=== PATIENT | male | born 1960 | race Caucasian/White ===

== ENCOUNTER → 2019-09-09 | Outpatient (CLI) | payer OTHER ==
--- NOTE | 2019-09-09 15:29 | XR ---
EXAMINATION TYPE: XR tibia fibula LT DATE OF EXAM: 09/09/2019 CLINICAL HISTORY: Numbness in left leg from injury. TECHNIQUE: Two views of the left leg are obtained. COMPARISON: None. FINDINGS: There is no acute fracture or dislocation seen in the left tibia or fibula. The left knee and ankle joints appear within normal limits. Some vascular calcification posterior distal leg level noted. IMPRESSION: There is no acute fracture or dislocation seen in the left tibia or fibula.
== END | disposition home or self-care (01) ==
LOC: RADXRMAIN 15:12
PROVIDERS: ATTEND Emergency Medicine
DX: S86.112A Strain of other muscle(s) and tendon(s) of posterior muscle group at lower leg level, left leg, initial encounter (principal)

== ENCOUNTER 2020-05-21 13:13 | Emergency (ER) | payer OTHER ==
[2020-05-21 13:54] VITALS: RESP 18
--- NOTE | 2020-05-21 14:37 | XR ---
EXAMINATION TYPE: XR ankle complete RT, XR foot complete RT DATE OF EXAM: 05/21/2020 CLINICAL HISTORY: Jumping injury with pain TECHNIQUE: Frontal, lateral and oblique images of the right ankle and foot are obtained. COMPARISON: None. FINDINGS: Their is acute comminuted slightly displaced fracture through the calcaneus, extension to s uperior posterior aspect is present, there is extension to the inferior aspect near the plantar fasci al insertion. There is extension to the subtalar joint. Bohler's angle fairly well maintained. Ankle mortise symmetry is preserved. Distal tibia and fibula intact. No additional acute fracture or dislocation in the right foot. Mild to moderate narrowing and spurrin g hindfoot and midfoot levels. Mild plantar surface subcutaneous edema. Impression: Acute comminuted minimally displaced calcaneal fracture as detailed above.
[2020-05-21] MEDS ORDERED: HYDROcodone/APAP 5-325MG 1 EACH TAB PO STA (14:49)
--- NOTE | 2020-05-21 15:57 | ED ---
General Adult HPI - General Chief complaint: Extremity Injury, Lower Stated complaint: Fall, R Ankle Injury Time Seen by Provider: 05/21/20 14:01 Source: patient, RN notes reviewed, old records reviewed Mode of arrival: wheelchair Limitations: physical limitation - History of Present Illness Initial comments: 59-year-old male patient presents to ED for evaluation of right foot pain. Patient reports that he was on a ladder moving some bricks from a chimney wound was then it attacked by a swarm of wasps. Patient produced a couple times. Patient states that he should've me down the ladder below his blood forceps up he jumped landing on his right calcaneus region. Patient is having localized pain in this area. Denies hitting his head or his neck. Denies any use of blood thinners. Denies any back pain. Systemic: Pt denies fatigue, fever/chills, rash. Pt denies weakness, night sweats, weight loss. Neuro: Pt denies headache, visual disturbances, syncope or pre-syncope. HEENT: Pt denies ocular discharge or irritation, otalgia, rhinorrhea, pharyngitis or notable lymphadenopathy. Cardiopulmonary: Pt denies chest pain, SOB, heart palpitations, dyspnea on exertion. Abdominal/GI: Pt denies abdominal pain, n/v/d. : Pt denies dysuria, burning w/ urination, frequency/urgency. Denies new onset urinary or bowel incontinence. Neuro: Pt denies new onset weakness, paresthesias. - Related Data Previous Rx's Medication Instructions Recorded Hydrocodone/Acetaminophen [[place] 1 each PO Q4HR PRN #20 tab 11/16/15 5-325] Levofloxacin [Levaquin] 750 mg PO DAILY #10 tab 11/16/15 metroNIDAZOLE [Flagyl] 500 mg PO QID 10 Days tab 11/16/15 Allergies Allergy/AdvReac Type Severity Reaction Status Date / Time No Known Allergies Allergy Verified 05/21/20 13:54 Review of Systems ROS Statement: Those systems with pertinent positive or pertinent negative responses have been documented in the HPI. ROS Other: All systems not noted in ROS Statement are negative. Past Medical History Past Medical History: No Reported History Additional Past Medical History / Comment(s): diverticulitis History of Any Multi-Drug Resistant Organisms: None Reported Past Surgical History: No Surgical Hx Reported Past Psychological History: No Psychological Hx Reported Smoking Status: Current every day smoker Past Alcohol Use History: None Reported Past Drug Use History: None Reported General Exam - General Exam Comments Initial Comments: Constitutional: NAD, AOX3, Pt has pleasant affect. HEENT: NC/AT, trachea midline, neck supple, no lymphadenopathy. Posterior pharynx non erythematous, without exudates. External ears appear normal, without discharge. Mucous membranes moist. Eyes PERRLA, EOM intact. There is no scleral icterus. No pallor noted. Cardiopulmonary: RRR, no murmurs, rubs or gallops, no JVD noted. Lungs CTAB in anterior and posterior otto. No peripheral edema. Abdominal exam: Abdomen soft and non-distended. Abdomen non-tender to palpation in all 4 quadrants. Bowel sounds active in LLQ. No hepatosplenomegaly. No ecchymosis Neuro: CN II-XII grossly intact. No nuchal rigidity. No raccon eyes, no lyn sign, no hemotympanum. No cervical spinal tenderness. MSK: Right calcaneus tender to palpation. No ankle tenderness. No proximal tib-fib tenderness. No other areas of tenderness. No cervical thoracic or lumbar tenderness. Patient placed in posterior ankle splint. Neurovascular intact before and after splint placement. No posterior calf tenderness bilaterally, homans sign negative bilaterally. Posterior tibialis and radial pulse +2 bilaterally. Sensation intact in upper and lower extremities. Limitations: physical limitation Course Vital Signs 05/21/20 05/21/20 13:48 15:18 Temperature 97.8 F 98.2 F Pulse Rate 99 100 Respiratory 18 18 Rate Blood Pressure 174/104 166/111 O2 Sat by Pulse 97 96 Oximetry Medical Decision Making - Medical Decision Making 59-year-old male patient presented evaluation in the right calcaneus injury. Patient of Dr. caicedo about 4 steps. Physical exam displayed tenderness in the area. Sensation is intact. Distal pulses are intact. Sensation is intact. Plain film displays acute comminuted minimally displaced calcaneus fracture. Discussed case with orthopedics and. She recommended a well-padded posterior ankle splint which was performed. Patient was placed on crutches actually no weightbearing with outpatient follow-up tomorrow. Case discussed with Dr. Fang. Disposition Clinical Impression: Calcaneus fracture Disposition: HOME SELF-CARE Condition: Stable Instructions (If sedation given, give patient instructions): Foot Fracture in Adults (ED) Additional Instructions: Follow-up with orthopedic consult tomorrow. Follow up with PCP in 1-2 days. Use crutches, do not bear any weight on the right lower extremity. Return to ER with any worsening symptoms. Is patient prescribed a controlled substance at d/c from ED?: No Referrals: None,Stated [Primary Care Provider] - 1-2 days Anthony Pina DO [Doctor of Osteopathic Medicine] - 1-2 days Anatoliy Johnson [STAFF PHYSICIAN] - 1-2 days
[2020-05-21 17:36] VITALS: BP 168/109; PULSE 102; TEMP 98.8
== END 2020-05-21 16:17 | disposition home or self-care (01) ==
LOC: EC 13:13
DX: S92.001A Unspecified fracture of right calcaneus, initial encounter for closed fracture (principal); F17.200 Nicotine dependence, unspecified, uncomplicated; W11.XXXA Fall on and from ladder, initial encounter; Y93.89 Activity, other specified; Y92.89 Other specified places as the place of occurrence of the external cause
CPT/HCPCS: 29515; 99284

== ENCOUNTER → 2022-03-17 | Outpatient (CLI) | payer OTHER ==
--- NOTE | 2022-03-17 12:51 | MR ---
EXAMINATION TYPE: MR lumbar spine wo con DATE OF EXAM: 03/17/2022 COMPARISON: None HISTORY: 61-year-old male [id number], chronic low back pain with bilateral lower extremity pain and weakne ss. Difficulty standing and walking for long periods of time. TECHNIQUE: Multiplanar, multisequence images of the lumbar spine were acquired without IV contrast. FINDINGS: Vertebral body heights are preserved and alignment is maintained. Mild heterogeneous marrow signal suggesting red marrow hyperplasia which can be seen with anemia, obe sity, smoking, chronic disease. No suspicious bone marrow replacement. There is mild degenerative disc disease characterized by mild disc desiccation and disc bulging throu ghout. Some scattered Modic type II fatty endplate change is present throughout. Conus medullaris is normal. Mild disc bulges are present mid and lower lumbar spine. No large focal disc herniation or significan t spinal canal stenosis. Facet arthropathy mid to lower lumbar spine. On the right, changes result in mild neural foraminal stenosis at L5-S1. There is a right lateral dis c osteophyte complex here that may abut the extraforaminal right L5 nerve root. On the left, no significant neuroforaminal stenosis is seen. No prevertebral paravertebral soft tissue abnormality. IMPRESSION: 1. Only mild degenerative disc disease. Some mild bulging discs are present. No focal disc herniation or spinal canal stenosis. 2. Facet arthropathy lower lumbar spine. This contributes to a mild right neuroforaminal stenosis at L5-S1. 3. In addition, there is a right lateral disc osteophyte complex at L5-S1 which may abut the extrafor aminal right L5 nerve root.
== END | disposition home or self-care (01) ==
LOC: RADMRIMAIN 10:32
PROVIDERS: ATTEND Nurse Practitioner Family
DX: M47.896 Other spondylosis, lumbar region (principal); M62.81 Muscle weakness (generalized)
CPT/HCPCS: 72148